=== PATIENT | male | born 1975 | race Two or more races ===

== ENCOUNTER → 2021-02-03 13:54 | Outpatient (BNVA) | payer OTHER, SELFPAY | PROVIDERS: PCP Nurse Practitioner Family; Visit Provider Physician Assistant | DX: S89.92XA Unspecified injury of left lower leg, initial encounter (principal); X58.XXXA Exposure to other specified factors, initial encounter | CPT/HCPCS: 73564; 99203 ==

== ENCOUNTER → 2021-02-05 09:43 | Outpatient (BNVA) | payer OTHER, SELFPAY | PROVIDERS: PCP Nurse Practitioner Family; Visit Provider Physician Assistant Medical | DX: S89.92XA Unspecified injury of left lower leg, initial encounter (principal); S76.192A Other specified injury of left quadriceps muscle, fascia and tendon, initial encounter; X50.3XXA Overexertion from repetitive movements, initial encounter; X50.1XXA Overexertion from prolonged static or awkward postures, initial encounter | CPT/HCPCS: 99213 ==

== ENCOUNTER → 2021-02-15 15:14 | Outpatient (BNVA) | payer OTHER, SELFPAY | PROVIDERS: PCP Nurse Practitioner Family; Visit Provider Physician Assistant | DX: S89.92XD Unspecified injury of left lower leg, subsequent encounter (principal); X58.XXXD Exposure to other specified factors, subsequent encounter | CPT/HCPCS: 99213 ==

== ENCOUNTER 2024-11-21 09:02 | Outpatient (AMB) | payer OTHER, SELFPAY ==
--- NOTE | 2024-11-21 09:16 | MHC.PC.OV ---
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 Accompanied by: Spouse Allergies No Known Allergies [No Known Allergies*] Allergy (Verified 11/21/24 10:01) Medication List - Last Reconciled 11/21/24 by JANNIE Seo No Known Home Meds Tobacco use date assessed: 11/21/24 Dental Screening Dental Screen Date: 11/21/24 Did you have a dental visit in the last 12 months?: Yes Did you have a dental problem in the last 6 months where you did not have access to dental care?: No Was dental information given to patient?: Patient has dentist HPI PE HPI Details History of Present Illness The patient is a 49-year-old male presenting with sinus issues and HTN. While previously having had a cystoscopy for prostate concerns, post-procedural effects include reduced urinary retention. He does not report any other concerning symptoms like chest pain, gastrointestinal issues, or mental health concerns. He has essential hypertension and currently records his blood pressure multiple times weekly. In sinus-related matters, he has frontal maxillary pressure, compounded by a deviated septum. His history of sleep apnea remains unexamined in recent years. He is scheduled for colorectal screening as part of his health maintenance. Health Maintenance - Blood pressure monitoring: To be conducted approximately three to four times a week. - Referral for colorectal screening. - Referral for sleep apnea testing. Social History Review of Systems - Respiratory: Denies chest pain, shortness of breath. - Gastrointestinal: Denies abdominal pain, constipation, diarrhea. - Psychiatric: Denies suicidal ideation, homicidal ideation. Physical Exam General: Cooperative, healthy appearing, comfortable, no acute distress and well developed, morbidly obese Orientation: Patient oriented x3 Limitations: No limitations Head: Normal to inspection Ears: Hearing grossly normal bilaterally Nose: Deviated septum present Face and sinus: Significant sinus issues with some frontal maxillary sinus pressure noted Eyes: Appearance normal, both eyes and all related structures Neck: Normal visual inspection and Yes full ROM Respiratory: Normal respiratory effort and able to speak in complete sentences. Clear to auscultation bilaterally Cardiovascular: Regular rate and rhythm. Normal S1 and S2 GI: Normal to inspection. Soft to palpation and nontender Skin: faint erythema to lower pannus Neuro: Patient oriented x3 Extremities: Normal to inspection Results - Tests: Scheduled sinus X-ray. Plan In managing this patient's essential hypertension, I prescribed losartan and recommended regular blood pressure monitoring. A sinus X-ray has been organized to clarify his sinus symptoms and assess the impact of the deviated septum. I planned a referral for colorectal cancer screening and testing for sleep apnea. Depending upon results, further evaluations on prostate-related urinary issues could be needed. Discussion Notes The diagnostic and management options, including hypertension management with losartan, was discussed with the patient, highlighting the medication's benefits as controlling blood pressure and reducing cardiovascular risks. The idea of regular blood pressure measurements was emphasized for effective management outcomes. I presented details of the sinus X-ray, emphasizing its importance in diagnosing sinus pressure causes. Regarding his sleep apnea history, explained the significance of further testing to mitigate associated risks. I discussed the importance of colorectal screening as part of preventive care, and the need to reevaluate urinary issues if they continue. Patient Instructions - Take losartan as prescribed for hypertension management, follow up - Monitor blood pressure three to four times per week. - Get a sinus X-ray as scheduled. - Follow up with recommended colorectal screening. - Attend recommended sleep apnea testing. - Report any new or worsening symptoms immediately. [facility] Surgical History No pertinent past surgical history Social History Housing: Apartment Patient Tobacco Use Status: Never used Tobacco e-Cigarette/Vaping Use: Never Used service: No Cognitive needs: No Hearing needs: No Vision needs: No Questionnaire PHQ-9 Over the last 2 weeks, how often have you been bothered by any of the following problems? 1. Little interest or pleasure in doing things: not at all 2. Feeling down, depressed, or hopeless: several days 3. Trouble falling or staying asleep, or sleeping too much: not at all 4. Feeling tired or having little energy: several days 5. Poor appetite or overeating: several days 6. Feeling bad about yourself - or that you are a failure or have let yourself or your family down: not at all 7. Trouble concentrating on things, such as reading the newspaper or watching television: several days 8. Moving or speaking so slowly that other people could have noticed. Or the opposite - being so fidgety or restless that you have been moving around a lot more than usual: not at all 9. Thoughts that you would be better off or of hurting yourself in some way: not at all Total score: 4 Depression Screening Interpretation: Negative Depression Screening Done: Yes 71155 - PHQ-9 Billing: Yes Source: Developed by Drs. Emre Powers, Lorena Oquendo, Viraj Venegas and colleagues, with an educational ricardo from [employer]. Thrive Questionnaire Date Thrive assessed: 11/21/24 I am a: Patient What is your living situation today?: I have a steady place to live Within the past 12 months, did the food you bought not last and you didn't have the money to get more?: Never true Within the past 12 months, did you worry whether your food would run out before you got money to buy more?: Never true Do you have trouble paying for medicines?: No Do you have trouble getting transportation to medical appointments?: No Do you have trouble paying your heating and electricity bill?: No Do you have trouble taking care of your child, family member or friend?: No Do you have trouble with day-to-day activities such as bathing, preparing meals, shopping, managing finances, etc.?: No Are you currently unemployed and looking for a job?: No Are you interested in more education?: No Please select the resources that you would like help with: None Currently or been in a relationship where the following occur: No concerns reported THRIVE Score: 0 AUDIT C Alcohol Use Questionnaire (AUDIT-C) 1. How often do you have a drink containing alcohol?: Monthly or less 2. How many drinks containing alcohol do you have on a typical day when you are drinking?: 3 or 4 3. How often do you have six or more drinks on one occasion?: Never Total Score: 2 Score Reviewed/Action Taken: Yes LINDEN-7 AMB Questionnaire LINDEN-7 Date LINDEN - 7 assessed: 11/21/24 Feeling nervous, anxious, or on edge: 1 = Several days Not being able to stop or control worryin = Not at all Worrying too much about different things: 0 = Not at all Trouble relaxin = Not at all Being so restless that it is hard to sit still: 0 = Not at all Becoming easily annoyed or irritable: 1 = Several days Feeling afraid as if something awful might happen: 0 = Not at all Total LINDEN-7 score (0-4 normal; 5-9 mild; 10-14 moderate; 15-21 severe): 2 Source: Developed by Drs. Emre Powers, Lorena Oquendo, Viraj Venegas and colleagues, with an educational ricardo from [employer]. LINDEN-7 Assessment Billing LINDEN-7 Assessment Tool: LINDEN-7 Assessment 63182 Physical exam (Primary Care) Vital Signs: Last Vital Signs Pulse 89 11/21/24 09:35 Resp 18 11/21/24 09:35 BP 148/102 H 11/21/24 09:35 Pulse Ox 96 11/21/24 09:35 Oxygen Delivery Method Room Air 11/21/24 09:35 BMI result Body Mass Index 39.8 Tobacco/Smoking Status: Tobacco use Status Tobacco use date assessed 11/21/24 11/21/24 09:20 Patient Tobacco Use Status Never used Tobacco 11/21/24 09:20 e-Cigarette/Vaping Use Never Used 11/21/24 09:20 PHQ-9: PHQ-9 Score PHQ-9: Total score 4 11/21/24 10:01 Depression Screening Interpretation: Negative Thrive Assessment: Date of Thrive Assessment Date Thrive assessed 11/21/24 11/21/24 09:20 Currently or been in a relationship where the following occur: No concerns reported Coding Level of Care Code Est Pt Prev Care 40-64y(15428) Diagnoses Encounter for routine adult physical exam with abnormal findings Z00.01 HTN (hypertension) I10 Screening for colon cancer Z12.11 Screening for prostate cancer Z12.5 Sleep apnea G47.30 Chronic sinusitis J32.9 Additional Codes LINDEN-7 Assessment Billing - LINDEN-7 Assessment Tool: LINDEN-7 Assessment 68012 ([id number]) PHQ-9 - 51293 - PHQ-9 Billing: Yes ([id number]) Assessment & Plan Assessment & Plan (1) Encounter for routine adult physical exam with abnormal findings: Code(s): Z00.01 - Encounter for general adult medical examination with abnormal findings Category: Medical (2) HTN (hypertension): Code(s): I10 - Essential (primary) hypertension Category: Medical Plan: . (3) Screening for colon cancer: Code(s): Z12.11 - Encounter for screening for malignant neoplasm of colon Category: Medical (4) Screening for prostate cancer: Code(s): Z12.5 - Encounter for screening for malignant neoplasm of prostate Category: Medical (5) Sleep apnea: Code(s): G47.30 - Sleep apnea, unspecified Category: Medical (6) Chronic sinusitis: Code(s): J32.9 - Chronic sinusitis, unspecified Category: Medical Plan . Orders: Orders Complete Blood Count Auto Diff Today Z00.01 - Encounter for general adult medical examination with abnormal findings Comprehensive [place]. Panel Fast Today Z00.01 - Encounter for general adult medical examination with abnormal findings TSH reflex Free T4 Today Z00.01 - Encounter for general adult medical examination with abnormal findings UA CC w/rflx Micro + Cult Today Z00.01 - Encounter for general adult medical examination with abnormal findings Lipid Panel Today Z00.01 - Encounter for general adult medical examination with abnormal findings Prostate Specific Antigen Scr Today Z12.5 - Encounter for screening for malignant neoplasm of prostate XR sinus min 3V Today J32.9 - Chronic sinusitis, unspecified Referrals Gastroenterology Referral Z12.11 - Encounter for screening for malignant neoplasm of colon Sleep Medicine Referral G47.30 - Sleep apnea, unspecified Medications: New losartan 25 mg PO DAILY 90 days 90 tabs 0RF
[2024-11-21 09:35] VITALS: BP 148/102; PULSE 89; RESP 18; O2SAT 96; BMI 39.8
== END 2024-11-21 10:26 | disposition home or self-care (01) ==
PROVIDERS: Visit Provider Nurse Practitioner Family
DX: Z00.01 Encounter for general adult medical examination with abnormal findings (principal); I10 Essential (primary) hypertension; Z12.11 Encounter for screening for malignant neoplasm of colon; Z12.5 Encounter for screening for malignant neoplasm of prostate; G47.30 Sleep apnea, unspecified; J32.9 Chronic sinusitis, unspecified

== ENCOUNTER → 2024-11-21 09:02 | Outpatient (BNVA) | payer OTHER, SELFPAY | PROVIDERS: Visit Provider Nurse Practitioner Family | DX: Z00.01 Encounter for general adult medical examination with abnormal findings (principal); I10 Essential (primary) hypertension; G47.30 Sleep apnea, unspecified; J32.9 Chronic sinusitis, unspecified | CPT/HCPCS: 96127 ==

== ENCOUNTER 2024-11-23 09:08 | Outpatient (REF) | payer OTHER, SELFPAY ==
--- NOTE | ~2024-11-23 | XR_ITS ---
EXAMINATION: XR PARANASAL SINUSES 3 VIEWS HISTORY: J32.9 - Chronic sinusitis, unspecified COMPARISON: There are no prior studies for comparison. FINDINGS: Four views of the paranasal sinuses are submitted. The bilateral frontal, maxillary, ethmoid, and sphenoid sinuses are well-aerated and clear. XR/XR sinus min 3V IMPRESSION: Unremarkable examination of the paranasal sinuses. Electronically signed by: Emre Gracia MD 11/25/2024 10:48 AM EDT
[2024-11-23 11:21] LABS: MANUAL DIFF FLAG NO
[2024-11-23 11:22] LABS: Appearance Urine Clear; Color Urine Yellow; Glucose Urine UA Negative (Negative); Leukocyte Esterase Urine Negative (Negative); Nitrite Urine Negative (Negative); PH 6.5 (5.0-9.0); UMIC TRIGGER UACC YES; Urine Blood Trace (Negative); Urine Ketones Negative (Negative); Urine Protein 30 (1+) mg/dL (Neg-Trace)
[2024-11-23 11:28] LABS: Basophils Percent Auto 0.5 % (0-2); Eosinophils Absolute Auto 0.1 X10*3/uL (0.0-0.4); Eosinophils Percent Auto 1.1 % (0-4); Hematocrit 48.2 % (42.0-52.0); Hemoglobin 16.7 g/dl (14.0-18.0); Imm Gran Abs Auto 0.02 X10*3/uL (0.00-0.03); Imm Gran Pct Auto 0.3 % (0.0-0.4); Lymphocytes Absolute Auto 1.8 X10*3/uL (1.2-4.9); Lymphocytes Percent Auto 27.9 % (20-40); Mean Corpuscular HGB Conc 34.6 g/dl (31.0-36.0); Mean Corpuscular Hemoglobin 28.9 pg (27.0-33.0); Mean Corpuscular Volume 83.5 fL (80.0-98.0); Mean Platelet Volume 9.8 fL (9.4-12.4); Monocytes Absolute Auto 0.6 X10*3/uL (0.1-1.2); Monocytes Percent Auto 9.1 % (2-11); Neutrophils Absolute Auto 3.9 x10*3/uL (2.0-8.3); Neutrophils Percent Auto 61.1 % (45-73); Platelet Count 171 X10*3/uL (160-400); Red Blood Count 5.77 X10*6/uL (4.60-5.80); Red Cell Distribution Width 14.2 % (11.0-16.0); White Blood Count 6.4 X10*3/uL (4.8-10.8)
[2024-11-23 11:29] LABS: Bacteria Urine None Seen (None Seen); Hyaline Casts Urine 0-2 /LPF (0-2); Squamous Epithelial Cell Urine 0-2 /HPF (0-2); WBC Urine 0-5 /HPF (0-5)
[2024-11-23 12:09] LABS: Prostate Specific Antigen Scr 0.95 ng/mL (<0.05-4.0)
[2024-11-23 12:10] LABS: Alanine Aminotransferase 53 U/L (0-40); Albumin Level 4.2 g/dL (3.5-5.0); Alkaline Phosphatase 78 U/L (39-117); Anion Gap 14 (12-20); Aspartate Amino Transferase 37 U/L (5-37); Bilirubin Total 0.5 mg/dL (0.0-1.0); Blood Urea Nitrogen 12 mg/dL (9-16); Carbon Dioxide 26 mmol/L (22-29); Chloride 107 mmol/L (96-108); Cholesterol 195 mg/dL (<200); Estimated Glomerular Filt Rate > 60; Glucose Fasting 99 mg/dL (60-99); HDL Cholesterol 40 mg/dL (>40); LDL Cholesterol Calculated 133 mg/dL (<100); Potassium 3.3 mmol/L (3.3-5.1); Sodium 144 mmol/L (135-145); TSH reflex Free T4 2.68 uIU/mL (0.32-4.0); Total Protein 7.5 g/dL (6.5-8.0); Triglycerides 110 mg/dL (<150)
== END 2024-11-23 09:09 | disposition home or self-care (01) ==
LOC: HO.HMGCX 09:08
PROVIDERS: PCP Nurse Practitioner Family; Visit Provider Nurse Practitioner Family
DX: J32.9 Chronic sinusitis, unspecified (principal); Z12.5 Encounter for screening for malignant neoplasm of prostate; Z13.6 Encounter for screening for cardiovascular disorders; Z00.01 Encounter for general adult medical examination with abnormal findings
CPT/HCPCS: 36415; 70220; 80053; 80061; 81001; 84153; 84443; 85025

== ENCOUNTER → 2024-11-23 09:12 | Outpatient (BNV) | payer OTHER, SELFPAY | PROVIDERS: PCP Nurse Practitioner Family; Visit Provider Radiology Diagnostic Radiology | DX: J32.9 Chronic sinusitis, unspecified (principal) | CPT/HCPCS: 70220 ==

== ENCOUNTER 2024-12-10 11:02 | Outpatient (AMB) | payer OTHER, SELFPAY ==
--- NOTE | 2024-12-10 11:07 | A.OFFVIS_ITS ---
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 handed male here for a sleep evaluation per PCP. He goes to bed at 10pm gets up at 5am, and per he also gasps for air, stops breathing multiple times, she has to nudge him and he starts breathing again, and most bothersome is the constant loud snoring. He wakes up constantly, spits his mouth guard out onto the floor as he clenches his jaws and grinds his teeth. He wakes up with morning with headaches daily turning into migraines and they can last for days with photophobia and phonophobia will need to monitor for monthly burden of migraines with a diary, he denies auras. His LFTs are elevated per last labs and BP is not well controlled on Losartan 25mg po daily. He denies RLS but he does toss and turn a lot at night. He has acid reflux and gets a bloated feeling with a metallic tastes in his mouth when he lays down. He does not smoke nicotine, vape, or do MJ edibles. He drinks alcohol occasionally during social events, past consumptions was 3 beers 2x a week. His BMI is elevated and would like a Weight management referral to improve caloric intake and strategies for meal prepping. [facility] Surgical History No pertinent past surgical history Social History Housing: Apartment Patient Tobacco Use Status: Never used Tobacco e-Cigarette/Vaping Use: Never Used service: No Cognitive needs: No Hearing needs: No Vision needs: No Review of Systems Const All systems reviewed & are unremarkable except as noted in HPI and below Physical Exam Vital Signs: Last Vital Signs Pulse 72 12/10/24 11:09 BP 142/110 H 12/10/24 11:09 Pulse Ox 97 12/10/24 11:09 Oxygen Delivery Method Room Air 12/10/24 11:09 BMI result Body Mass Index 32.6 Const Orientation/consciousness: patient oriented x3 HEENT Face and sinus: Yes normal facial exam and Yes face symmetric Throat: Yes other ([place] score of 4.) Eyes Pupils: Equal, round and reactive pupils present Neck Neck: Yes full ROM and Yes supple Resp Effort & Inspection: normal respiratory effort and able to speak in complete sentences Neuro General: patient oriented x3 and moves all extremities Cranial nerves: Yes CN's II-XII intact bilaterally, Yes Facial sensation intact/muscles of mastication intact, Yes Equal, round and reactive pupils present, Yes Normal accommodation reflex present, Yes Bilaterally intact EOM present, Yes Normal facial strength present, Yes Midline tongue present, Yes Ability to bilaterally rotate head present and Yes Ability to bilaterally elevate shoulders present Motor exam (neuro): 5/5 motor strength present throughout, no tremor noted and Normal motor muscle tone present throughout Deep tendon reflexes (DTR's): Right triceps reflex intensity grade: 2+, Left triceps reflex intensity grade: 2+, Rt Biceps (C5, C6): 2+, Left biceps reflex intensity grade: 2+, Right brachioradialis reflex intensity grade: 2+, Left brachioradialis reflex intensity grade: 2+, Right patellar reflex intensity grade: 2+ and Left patellar reflex intensity grade: 2+ Psych Thought process: Normal thought process present Thought content: Normal thought content present Results Reviewed Results Reviewed: FINDINGS: Four views of the paranasal sinuses are submitted. The bilateral frontal, maxillary, ethmoid, and sphenoid sinuses are well-aerated and clear. [employer]? Assessment & Plan Assessment & Plan (1) Mild acid reflux: Code(s): K21.9 - Gastro-esophageal reflux disease without esophagitis Category: Medical (2) Fatigue due to sleep pattern disturbance: Code(s): R53.83 - Other fatigue; G47.9 - Sleep disorder, unspecified Category: Medical (3) Migraines: Code(s): G43.909 - Migraine, unspecified, not intractable, without status migrainosus Category: Medical Qualifiers: Migraine type: unspecified Status migrainosus presence: without status migrainosus Intractability: intractable Qualified Code(s): G43.919 - Migraine, unspecified, intractable, without status migrainosus Plan HST Excessive Fatigue and snoring. Labs for deficiencies CBC for anemia, CMP, Vitamin D, B12, Homocysteine, MMA, Folate, Hga1c, TSH Acid Reflux Omeprazole 10mg PO daily. Migraine headaches start Ubrelvy 100mg PO PRN at the onset of a headache, may take one additional tablet if the migraine does not abort in 2 hours, for a total daily dose not to exceed 200mg PO daily. Contraindications: Sumatriptan and all triptans are contraindicated due to uncontrolled HTN, will start him on ubrelvy. Orders: Orders RT home sleep study Today G47.19 - Other hypersomnia Comprehensive Met. Panel Today G47.9 - Sleep disorder, unspecified, R53.83 - Other fatigue Vitamin D 25-OH Total Today G47.9 - Sleep disorder, unspecified, R53.83 - Other fatigue Vitamin B12 and Folate Today G47.9 - Sleep disorder, unspecified, R53.83 - Other fatigue Methylmalonic Acid Today G47.9 - Sleep disorder, unspecified, R53.83 - Other fatigue Hemoglobin A1c Today G47.9 - Sleep disorder, unspecified, R53.83 - Other fatigue Complete Blood Count no Diff Today G47.9 - Sleep disorder, unspecified, R53.83 - Other fatigue Ferritin Today G47.9 - Sleep disorder, unspecified, R53.83 - Other fatigue Homocysteine Today G47.9 - Sleep disorder, unspecified, R53.83 - Other fatigue TSH reflex Free T4 Today G47.9 - Sleep disorder, unspecified, R53.83 - Other fatigue Referrals Medical Weight Management Referral E66.01 - Morbid (severe) obesity due to excess calories Medications: New omeprazole Take one tablet as neeeded 30min prior to meal. 10 mg PO DAILY 30 caps 1RF GERD MDD 20mg daily K21.9 - Gastro-esophageal reflux disease without esophagitis ubrogepant (Ubrelvy) May take one 100mg PO tablet at the onse of migraines, if migraine does not abort in two hours you may take one additional tablet for a total dose of 200mg PO in a 24 hour period. 100 mg PO BID 30 days PRN 16 tabs 3RF Migraine acute onset MDD 200mg PO G43.909 - Migraine, unspecified, not intractable, without status migrainosus Patient Instructions: Sleep Hygiene provided: set a scheduled bedtime and wake time to help regulate the circadian rhythm and balance the release of pituitary hormones. Sleep in a dark room, temperatures below 68 degrees, and no devices n bed. Limit caffeinated products 6 hours prior to bed, and limit fluids 2-4 hours prior to bed. Gentle night yoga, diffusing essential oils, and playing soft music can be relaxing. The number 1 modifiable risk factor for sleep apnea is good control of HTN, f/u with PCP re: Losartan mangement as BP is 142/110 today. Headaches / Migraine take ubrelvy 100mg PO at the onset of migraine, may take one more tablet within 2 hours if the headache/migraine does not abort. Do not exceed 200mg PO daily. Bruxism, grinding of teeth will refer to sleep dentistry future consideration. Coding Level of Care Code New Pt Level 4 (29303) Complex EM visit Add On G2211 Diagnoses Mild acid reflux K21.9 Fatigue due to sleep pattern disturbance R53.83; G47.9 Intractable migraine without status migrainosus, unspecified migraine type G43.919 Migraine type: unspecified Status migrainosus presence: without status migrainosus Intractability: intractable Time Spent (min) 30 Comment Evalutation of Sleep apnea Sleep Questionnaire Difficulty falling asleep: No Difficulty staying asleep?: No Number of arousals: 1x Snoring: Yes Witnessed apneas: Yes Gasping arousals: Yes Nocturia: No GERD: Yes Vivid dreams: Yes Acting out dreams: No Abnormal behavior in sleep: Yes Abnormal movements in sleep: No Morning headaches: Yes Excessive daytime sleepiness: Yes Daytime naps: No Restless legs: No Hallucinations: No Sleep paralysis: No Drop attacks: No Sleep Study: Yes (>10 ) CPAP: No
[2024-12-10 11:09] VITALS: BP 142/110; PULSE 72; O2SAT 97; BMI 32.6
== END 2024-12-10 11:59 | disposition home or self-care (01) ==
LOC: HO.HSMS 11:03
PROVIDERS: PCP Nurse Practitioner Family; Visit Provider Physician Assistant Medical
DX: K21.9 Gastro-esophageal reflux disease without esophagitis (principal); R53.83 Other fatigue; G47.9 Sleep disorder, unspecified; G43.919 Migraine, unspecified, intractable, without status migrainosus
CPT/HCPCS: 99204

== ENCOUNTER 2024-12-17 12:47 | Outpatient (REF) | payer OTHER, SELFPAY ==
--- NOTE | ~2024-12-17 | US_ITS ---
CLINICAL HISTORY: R74.8 - Abnormal levels of other serum enzymes US abdomen complete Comparison: None Findings: The visualized pancreas is normal. The aorta and inferior vena cava are normal caliber. The liver is enlarged with increase of echogenicity. There is no intrahepatic bile duct dilatation. The common duct is 2.0 mm in diameter. The gallbladder is normal. There is no sonographic Pelayo sign. The right kidney is 11.7 cm in length. The left kidney is 13 cm in length. 7 mm stone of the midpole. The spleen is enlarged measuring 13.5 cm. No ascites. IMPRESSION: Increase of echogenicity of the liver favored to represent hepatic steatosis. Mild hepatomegaly. Left kidney stone. Splenomegaly. This document has been electronically signed by: Katalina Muhammad MD on 12/17/2024 21:22:44
[2024-12-17 16:15] LABS: Hematocrit 48.7 % (42.0-52.0); Mean Corpuscular HGB Conc 34.9 g/dl (31.0-36.0); Mean Platelet Volume 9.8 fL (9.4-12.4); Platelet Count 120 X10*3/uL (160-400); Red Blood Count 5.87 X10*6/uL (4.60-5.80); Red Cell Distribution Width 13.6 % (11.0-16.0); White Blood Count 3.3 X10*3/uL (4.8-10.8)
[2024-12-17 16:35] LABS: Estimated Average Glucose 128 mg/dL; Hemoglobin A1C 187.8087 umol/L; Hemoglobin A1c % 6.1 % (<6.0); Total Hemoglobin (HGBA1C) 4385.5903 umol/L
[2024-12-17 17:01] LABS: Alanine Aminotransferase 54 U/L (0-40); Albumin Level 4.2 g/dL (3.5-5.0); Anion Gap 12 (12-20); Aspartate Amino Transferase 52 U/L (5-37); Bilirubin Total 0.7 mg/dL (0.0-1.0); Blood Urea Nitrogen 11 mg/dL (9-16); Calcium 8.8 mg/dL (8.4-10.2); Carbon Dioxide 26 mmol/L (22-29); Chloride 107 mmol/L (96-108); Estimated Glomerular Filt Rate > 60; Glucose Random 99 mg/dL (60-115); Sodium 142 mmol/L (135-145); Total Protein 7.3 g/dL (6.5-8.0)
[2024-12-17 17:02] LABS: Folate 14.3 ng/mL (> or = 4.0); Vitamin B12 876 pg/mL (200-900)
[2024-12-17 17:18] LABS: Ferritin 556 ng/mL (20-250); TSH reflex Free T4 4.38 uIU/mL (0.32-4.0); Vitamin D 25-OH Total 19.8 ng/mL (>30)
[2024-12-17 18:20] LABS: Alkaline Phosphatase 69 U/L (39-117)
[2024-12-17 18:56] LABS: Free T4 (Free Thyroxine) 1.05 ng/dL (0.71-1.85)
[2024-12-20 05:48] LABS: Methylmalonic Acid 87 nmol/L (55-335)
== END 2024-12-17 12:48 | disposition home or self-care (01) ==
LOC: HO.HMGCX 12:47
PROVIDERS: PCP Nurse Practitioner Family; Referring Provider Physician Assistant Medical; Visit Provider Nurse Practitioner Family
DX: R74.8 Abnormal levels of other serum enzymes (principal); G47.9 Sleep disorder, unspecified; R53.83 Other fatigue; Z13.1 Encounter for screening for diabetes mellitus
CPT/HCPCS: 36415; 76700; 80053; 82306; 82607; 82728; 82746; 83036; 83921; 84439; 84443; 85027

== ENCOUNTER → 2024-12-17 12:52 | Outpatient (BNV) | payer OTHER, SELFPAY | PROVIDERS: PCP Nurse Practitioner Family; Referring Provider Physician Assistant Medical; Visit Provider Nuclear Medicine | DX: K76.0 Fatty (change of) liver, not elsewhere classified (principal); N20.0 Calculus of kidney | CPT/HCPCS: 76700 ==

== ENCOUNTER → 2025-01-02 07:02 | Outpatient (BNVA) | payer OTHER, SELFPAY | PROVIDERS: Visit Provider Nurse Practitioner Family | DX: Z13.89 Encounter for screening for other disorder (principal) ==

== ENCOUNTER 2025-01-15 08:09 | Outpatient (AMB) | payer OTHER, SELFPAY ==
--- NOTE | 2025-01-15 11:43 | MHC.OFFVISWM ---
VS Expanded 01/15/25 11:52 Height 5 ft 10 in Weight 267 lb 4 oz BMI 38.3 Body Fat % 32.5 Body Fat Mass 86.8 Fat Free Mass 180.4 Visceral Fat Rating 18 Body Water % 50.2 Body Water Mass 134 Basal Metabolic Rate/Score 2,477 Intake Visit Reasons: [employer] [facility] Allergies cyclobenzaprine Allergy (Mild, Verified 01/15/25 11:44) Rash Medication List - Last Reconciled 01/15/25 by Taiwo Cornejo MD cholecalciferol (vitamin D3) 50 mcg PO DAILY 90 days MDD 1 capsule losartan 25 mg PO DAILY 90 days omeprazole 10 mg PO DAILY MDD 20mg daily ubrogepant (Ubrelvy) 100 mg PO BID PRN 30 days MDD 200mg PO HPI HPI TV [employer] [facility]: Details: Start time: 11.40am, End time: 12.15pm ?I spent 30 minutes speaking with the patient on the phone plus an additional 5 minutes reviewing and updating records for a total of 35 minutes HPI Comments Details: Previous weight loss efforts: Herbalife Wakes up: 6am, Sleeps: 9.30pm Breakfast: skips Lunch: 12pm (turkey sandwich, grilled chicken, pork chops) Dinner: 5-6pm (rice, potatoes, grilled chicken, pasta) Snacks: 3-4pm (chips) Exercise: none Beverages: Green tea: (1 cup/d, plain), Coffee: rarely, soda: none, juice: rarely, ETOH: 6 beers per month PFSH Medical History (Updated 01/15/25 @ 12:05 by Taiwo Cornejo MD) GERD (gastroesophageal reflux disease) BMI 38.0-38.9,adult Obesity Fatty liver Splenomegaly Surgical History No pertinent past surgical history Social History (Updated 01/07/25 @ 15:03 by Betzaida Heard [facility]) Housing: Apartment Alcohol intake: former Patient Tobacco Use Status: Never used Tobacco e-Cigarette/Vaping Use: Never Used service: No Cognitive needs: No Hearing needs: No Vision needs: No Telehealth Telehealth Telehealth Platform: Telephone Location of provider rendering services: practice address Location of patient: address on file Patient Identification confirmed using: Name, : Yes Telehealth method: voice only Patient verbally consented to treatment: Yes Patient verbally consented to billing insurance company: Yes Patient informed of any privacy concerns related to visit: Yes Minutes spent on Phone/Video with Pt.: 35 Assessment & Plan Assessment & Plan (1) Obesity: Code(s): E66.9 - Obesity, unspecified Category: Medical Qualifiers: Obesity type: due to excess calories Obesity classification: adult class 2 (BMI 35 - 39.9) Serious obesity comorbidity presence: with serious comorbidity Body mass index: BMI 38.0-38.9 Qualified Code(s): E66.812 - Obesity, class 2; E66.01 - Morbid (severe) obesity due to excess calories; Z68.38 - Body mass index [BMI] 38.0-38.9, adult Plan: 1. We discussed in detail the available therapeutic options: 1) our lifestyle intervention program that has an average weight loss of 10% in 3 months which is about 26-30lbs for you.? 2) Weight loss medications. Your insurance will cover them after you participate first in our program for 3 months in our lifestyle program. 3) We also discussed about the lap sleeve gastrectomy. I emphasized the importance of close follow-up, adherence to instructions and good communication. The surgery does not replace the need to change your lifestlyle which is the cause of the obesity problem. The surgery provides the motivation to try again to change your lifestyle, it reduces the appetite and make the transition to a better lifestyle easier and doubles the amount of weight you would lose compared to doing the lifestyle change without the surgery. You will need to be on a liquid diet with protein shakes for 2 weeks before surgery to maximize weight loss and boost your nutritional status to recover better from surgery and also for the first two weeks after surgery to let the stomach heal before we introduce other foods. After the first 2 weeks we will introduce protein bars and soft foods like scrambled eggs, cottage cheese and yogurt and after the 6th week will introduce meat, fish and cooked vegetables in small amounts. Over time you should be able to eat everything in small amounts. Side effects like nausea, vomiting, heartburn or abdominal pain are not common in the practice unless you are not following in the practice. This operation requires lifetime commitment to following in our practice and communication with me. You will much less weight and experience side effects if you don?t communicate or not following in the practice. Complications are rare and in our practice is about 1/10 of the national average. In my opinion, this is the best strategy [facility] to achieve the best overall weight loss and also maintain it long-term.
[2025-01-15 11:52] VITALS: BMI 38.3
== END 2025-01-15 12:15 | disposition home or self-care (01) ==
LOC: HO.HBS 08:09
PROVIDERS: PCP Nurse Practitioner Family; Visit Provider Surgery
DX: E66.812 Obesity, class 2 (principal); Z68.38 Body mass index [BMI] 38.0-38.9, adult
CPT/HCPCS: 98009

== ENCOUNTER 2025-01-27 15:42 | Outpatient (REF) | payer OTHER, SELFPAY ==
--- NOTE | ~2025-01-27 | CT_ITS ---
CLINICAL HISTORY: R31.29 - Other microscopic hematuria CT abdomen and pelvis without/with contrast Comparison: None Findings: There are only 2 phases of images submitted. The initial noncontrasted study and a delayed excretory phase series. Significant abnormalities can go undetected without initial vascular phase images. Lung bases clear. No acute bony abnormalities. Hepatomegaly with fatty infiltration of the liver. No focal abnormalities in liver or spleen. Pancreas and adrenal glands unremarkable. Gallbladder is within normal limits. Small nonobstructing left renal stone. No other significant focal renal abnormality. No ureteral stone or hydronephrosis. Abdominal aorta is normal in caliber. No free fluid or adenopathy in the pelvis. No diverticulitis. Appendix unremarkable. Impression: Study is limited to noncontrasted and delayed contrasted images No vascular phase imaging is submitted, abnormalities can go undetected No definite significant abnormality identified This document has been electronically signed by: John Lozano MD on 01/28/2025 23:59:35
[2025-01-27] MEDS: iohexoL 350 MG/ML 75 ML INFUS..BTL 85 ML IV (16:48)
== END 2025-01-27 15:43 | disposition home or self-care (01) ==
LOC: HO.CT 15:42
PROVIDERS: PCP Nurse Practitioner Family; Visit Provider Nurse Practitioner Family
DX: R31.29 Other microscopic hematuria (principal)
CPT/HCPCS: 74178; Q9967

== ENCOUNTER → 2025-01-27 15:44 | Outpatient (BNV) | payer OTHER, SELFPAY | PROVIDERS: PCP Nurse Practitioner Family; Visit Provider Radiology Diagnostic Radiology | DX: R31.29 Other microscopic hematuria (principal) | CPT/HCPCS: 74178 ==

== ENCOUNTER → 2025-02-06 15:01 | Outpatient (REF) | payer OTHER, SELFPAY | LOC: HO.SL 15:01 | PROVIDERS: PCP Nurse Practitioner Family; Visit Provider Physician Assistant Medical | DX: G47.19 Other hypersomnia (principal) | CPT/HCPCS: 95806 ==

== ENCOUNTER → 2025-02-06 15:09 | Outpatient (BNV) | payer OTHER, SELFPAY | PROVIDERS: PCP Nurse Practitioner Family; Visit Provider Psychiatry & Neurology Neurology | DX: G47.19 Other hypersomnia (principal) | CPT/HCPCS: 95806 ==

== ENCOUNTER 2025-02-22 10:59 | Outpatient (REF) | payer OTHER, SELFPAY ==
[2025-02-22 13:42] LABS: MANUAL DIFF FLAG NO
[2025-02-22 13:43] LABS: Basophils Percent Auto 0.4 % (0-2); Eosinophils Absolute Auto 0.1 X10*3/uL (0.0-0.4); Eosinophils Percent Auto 1.1 % (0-4); Hematocrit 46.4 % (42.0-52.0); Hemoglobin 15.8 g/dl (14.0-18.0); Imm Gran Abs Auto 0.02 X10*3/uL (0.00-0.03); Imm Gran Pct Auto 0.4 % (0.0-0.4); Lymphocytes Absolute Auto 1.6 X10*3/uL (1.2-4.9); Lymphocytes Percent Auto 29.1 % (20-40); Mean Corpuscular HGB Conc 34.1 g/dl (31.0-36.0); Mean Corpuscular Volume 85.3 fL (80.0-98.0); Mean Platelet Volume 9.8 fL (9.4-12.4); Monocytes Absolute Auto 0.6 X10*3/uL (0.1-1.2); Monocytes Percent Auto 10.5 % (2-11); Neutrophils Absolute Auto 3.2 x10*3/uL (2.0-8.3); Neutrophils Percent Auto 58.5 % (45-73); Platelet Count 158 X10*3/uL (160-400); Red Blood Count 5.44 X10*6/uL (4.60-5.80); Red Cell Distribution Width 14.3 % (11.0-16.0); White Blood Count 5.4 X10*3/uL (4.8-10.8)
[2025-02-22 13:44] LABS: Urine Cytology See Pathology rpt
[2025-02-22 13:46] LABS: Appearance Urine Clear; Color Urine Yellow; Glucose Urine UA Negative (Negative); Leukocyte Esterase Urine Small (1+) (Negative); Nitrite Urine Negative (Negative); PH 6.5 (5.0-9.0); Specific Gravity - Urine 1.015 (1.005-1.025); UMIC TRIGGER UACC YES; Urine Blood Trace (Negative); Urine Ketones Negative (Negative); Urine Protein Trace mg/dL (Neg-Trace)
[2025-02-22 13:51] LABS: Bacteria Urine None Seen (None Seen); Hyaline Casts Urine 0-2 /LPF (0-2); RBC Urine 0-2 /HPF (0-2); Squamous Epithelial Cell Urine 0-2 /HPF (0-2); UACC Culture Trigger YES
[2025-02-22 14:00] LABS: Alanine Aminotransferase 43 U/L (0-40); Albumin Level 4.3 g/dL (3.5-5.0); Alkaline Phosphatase 73 U/L (39-117); Anion Gap 11 (12-20); Aspartate Amino Transferase 33 U/L (5-37); Bilirubin Total 0.8 mg/dL (0.0-1.0); Blood Urea Nitrogen 13 mg/dL (9-16); Calcium 8.8 mg/dL (8.4-10.2); Carbon Dioxide 27 mmol/L (22-29); Chloride 107 mmol/L (96-108); Estimated Glomerular Filt Rate > 60; Glucose Random 87 mg/dL (60-115); Potassium 3.2 mmol/L (3.3-5.1); Sodium 142 mmol/L (135-145)
[2025-02-24 04:48] LABS: HBS Num1 2.52 mIU/mL (0-7.99); HBc Num1 0.07 S/CO (0.00-0.79); HBsAGNum1 0.36 S/CO (0.00-0.99); Hepatitis B Core Antibody Nonreactive (Nonreactive); Hepatitis B Surface Antigen Negative (Negative); ~HepC Num1 0.12 S/CO (0.00-0.79); ~Hepatitis A Antibody IgM Nonreactive (Nonreactive); ~Hepatitis B Surface Antibody NONREACTIVE (Nonreactive); ~Hepatitis C Antibody Nonreactive (Nonreactive)
== END 2025-02-22 11:00 | disposition home or self-care (01) ==
LOC: HO.HMGCLDS 10:59
PROVIDERS: PCP Nurse Practitioner Family; Visit Provider Nurse Practitioner Family
DX: R31.29 Other microscopic hematuria (principal); E87.6 Hypokalemia
CPT/HCPCS: 36415; 80053; 81001; 85025; 86704; 86706; 86709; 86803; 87086; 87340; 88112

== ENCOUNTER → 2025-02-25 08:23 | Outpatient (BNVA) | payer OTHER, SELFPAY | PROVIDERS: PCP Nurse Practitioner Family; Visit Provider Nurse Practitioner Family ==

== ENCOUNTER → 2025-03-20 08:01 | Outpatient (BNVA) | payer OTHER, SELFPAY | PROVIDERS: PCP Nurse Practitioner Family | DX: Z01.30 Encounter for examination of blood pressure without abnormal findings (principal) | CPT/HCPCS: 99211 ==

== ENCOUNTER 2025-03-25 13:53 | Outpatient (REF) | payer OTHER, SELFPAY ==
[2025-03-25 14:48] LABS: Appearance Urine Turbid; Glucose Urine UA Negative (Negative); PH 7.0 (5.0-9.0); Specific Gravity - Urine 1.020 (1.005-1.025); UMIC TRIGGER UACC YES
[2025-03-25 14:59] LABS: Other Crystals Urine Present
[2025-03-25 15:18] LABS: Alanine Aminotransferase 45 U/L (0-40); Albumin Level 4.3 g/dL (3.5-5.0); Alkaline Phosphatase 70 U/L (39-117); Anion Gap 11 (12-20); Aspartate Amino Transferase 31 U/L (5-37); Blood Urea Nitrogen 14 mg/dL (9-16); Calcium 9.2 mg/dL (8.4-10.2); Carbon Dioxide 29 mmol/L (22-29); Chloride 108 mmol/L (96-108); Estimated Glomerular Filt Rate > 60; Potassium 3.4 mmol/L (3.3-5.1); Sodium 145 mmol/L (135-145); Total Protein 6.9 g/dL (6.5-8.0)
[2025-03-26 04:23] LABS: HBS Num1 2.35 mIU/mL (0-7.99); HBc Num1 0.10 S/CO (0.00-0.79); HBsAGNum1 0.43 S/CO (0.00-0.99); Hepatitis A Antibody IgM 0.16 Index (0-0.79); Hepatitis B Surface Antigen Negative (Negative); ~HepC Num1 0.11 S/CO (0.00-0.79); ~Hepatitis A Antibody IgM Nonreactive (Nonreactive); ~Hepatitis B Surface Antibody NONREACTIVE (Nonreactive); ~Hepatitis C Antibody Nonreactive (Nonreactive)
== END 2025-03-25 13:54 | disposition home or self-care (01) ==
LOC: HO.LAB 13:53
PROVIDERS: PCP Nurse Practitioner Family; Visit Provider Nurse Practitioner Family
DX: Z00.01 Encounter for general adult medical examination with abnormal findings (principal); Z11.59 Encounter for screening for other viral diseases; I10 Essential (primary) hypertension; R74.8 Abnormal levels of other serum enzymes; R31.29 Other microscopic hematuria
CPT/HCPCS: 36415; 80053; 81001; 86704; 86706; 86709; 86803; 87086; 87340

== ENCOUNTER 2025-04-08 13:52 | Outpatient (AMB) | payer OTHER, SELFPAY ==
--- NOTE | 2025-04-08 14:01 | A.OFFVIS_ITS ---
Vital Signs 04/08/25 14:02 Height 5 ft 10 in Weight 272 lb 2 oz BMI 39.0 BP 132/82 Blood Pressure Location Rt brachial Position Sitting Pulse 91 Pulse Source Pulse Oximeter Pulse Oximetry (%) 95 Oxygen Delivery Method Room Air Intake Visit Reasons: 3mon follow-up Intake Note: Patient presents follow up Sleep/Migraine medication. Labs/HST in chart(AHI-49, XAVIER, 76%. APAP 5-20cm) PSG booked for 04/13(cx due to denied by insurance. will trial CPAP then with resubmit for PSG); WM seen 01/15. Patient has periodic headaches. last one was about 3 weeks ago(states feels one coming on now.)has not taken ubrelvy yet. Looking for medication. Accompanied by: Spouse Allergies cyclobenzaprine Allergy (Mild, Verified 04/08/25 14:05) Rash HPI Comments Details: 49 year old r. handed male here for a sleep evaluation per PCP. HST AHI 49/ hr Xavier 76% Apap [id number], will send for titration study once compliant He goes to bed at 10pm gets up at 5am, and per he also gasps for air, stops breathing multiple times, she has to nudge him and he starts breathing again, and most bothersome is the constant loud snoring. He wakes up constantly, spits his mouth guard out onto the floor as he clenches his jaws and grinds his teeth. He wakes up with morning with headaches daily turning into migraines lasting for hours to days, radiating temporal to ethmoid sinsu bilaterally, with photophobia and phonophobia, denies dizziness, vertigo, n/v and auras. will need to monitor for monthly burden. His BP is better managed now on Losartan 25mg po daily, and added amlodipine 5mg po daily. He denies RLS but he does toss and turn a lot at night. He has acid reflux and gets a bloated feeling with a metallic tastes in his mouth when he lays down, will take omeprazole. January 2025 he was seen by weight management, diet and excercise with lifestyle changes along nutrition and portion control reviewed. Zepbound option reviewed and Gastric bypass reviewed with patient and he is motivated to lose weight. COUNT INCLUDES THE [facility] Medical History GERD (gastroesophageal reflux disease) BMI 38.0-38.9,adult Obesity Fatty liver Splenomegaly Surgical History No pertinent past surgical history Social History Housing: Apartment Alcohol intake: former Patient Tobacco Use Status: Never used Tobacco e-Cigarette/Vaping Use: Never Used service: No Cognitive needs: No Hearing needs: No Vision needs: No Physical Exam Vital Signs: Last Vital Signs Pulse 91 04/08/25 14:02 BP 132/82 04/08/25 14:02 Pulse Ox 95 04/08/25 14:02 Oxygen Delivery Method Room Air 04/08/25 14:02 BMI result Body Mass Index 39.0 Const Orientation/consciousness: patient oriented x3 HEENT Face and sinus: Yes normal facial exam and Yes face symmetric Throat: Yes other ([place] score of 4.) Eyes Pupils: Equal, round and reactive pupils present Neck Neck: Yes full ROM and Yes supple Resp Effort & Inspection: normal respiratory effort and able to speak in complete sentences Neuro General: patient oriented x3 and moves all extremities Cranial nerves: Yes Facial sensation intact/muscles of mastication intact, Yes Equal, round and reactive pupils present, Yes Normal accommodation reflex present, Yes Bilaterally intact EOM present, Yes Normal facial strength present, Yes Midline tongue present, Yes Ability to bilaterally rotate head present and Yes Ability to bilaterally elevate shoulders present Motor exam (neuro): 5/5 motor strength present throughout, no tremor noted and Normal motor muscle tone present throughout Psych Appearance: grossly normal Mental Status: mental status grossly normal Thought process: Normal thought process present Thought content: Normal thought content present Results Reviewed Results Reviewed: HST AHI is 49/hour and O2 Nadirs to 72%, start APap at [id number] and will send for titration once established on therapy. Assessment & Plan Assessment & Plan (1) MO (obstructive sleep apnea): Comment: start cpap 5-20cm H20 will titrate once compliant Code(s): G47.33 - Obstructive sleep apnea (adult) (pediatric) Category: Medical (2) Fatigue due to sleep pattern disturbance: Code(s): R53.83 - Other fatigue; G47.9 - Sleep disorder, unspecified Category: Medical (3) Mild acid reflux: Comment: omeprazole Code(s): K21.9 - Gastro-esophageal reflux disease without esophagitis Category: Medical (4) Migraines: Comment: ubrelvy sent to pharmacy 16 tablets x 3 months. Code(s): G43.909 - Migraine, unspecified, not intractable, without status migrainosus Category: Medical Qualifiers: Migraine type: unspecified Status migrainosus presence: without status migrainosus Intractability: intractable Qualified Code(s): G43.919 - Migraine, unspecified, intractable, without status migrainosus Plan MO start cpap therapy and >4 hours daily at night, wash mask, hoses, change filters and fill reservoir with distilled water. Labs for deficiencies CBC for anemia, CMP, Vitamin D, B12, Homocysteine, MMA, Folate, Hga1c, TSH, reviewed with pt. Acid Reflux Omeprazole 10mg PO daily. Migraine headaches start Ubrelvy 100mg PO PRN at the onset of a headache, may take one additional tablet if the migraine does not abort in 2 hours, for a total daily dose not to exceed 200mg PO daily. Weight mangement for nutrition counseling, telehealth counseling, zepbound, nutrition and portion control, gastric bypass. Contraindications: Sumatriptan and all triptans are contraindicated due to uncontrolled HTN, will start him on ubrelvy. Medications: Changed From ubrogepant (Ubrelvy) May take one 100mg PO tablet at the onse of migraines, if migraine does not abort in two hours you may take one additional tablet for a total dose of 200mg PO in a 24 hour period. 100 mg PO BID PRN 16 tabs 3RF Migraine acute onset 30 days MDD 200mg PO G43.909 - Migraine, unspecified, not intractable, without status migrainosus To ubrogepant (Ubrelvy) May take one 100mg PO tablet at the onse of migraines, if migraine does not abort in two hours you may take one additional tablet for a total dose of 200mg PO in a 24 hour period. 100 mg PO ONCE PRN 16 tabs 3RF Migraine acute onset 90 days MDD 200mg G43.909 - Migraine, unspecified, not intractable, without status migrainosus Refilled ubrogepant (Ubrelvy) May take one 100mg PO tablet at the onse of migraines, if migraine does not abort in two hours you may take one additional tablet for a total dose of 200mg PO in a 24 hour period. 100 mg PO BID PRN 16 tabs 3RF Migraine acute onset 30 days MDD 200mg PO G43.909 - Migraine, unspecified, not intractable, without status migrainosus cholecalciferol (vitamin D3) Take one capsule at bedtime daily. 50 mcg PO DAILY 90 caps 3RF low vitamin D 90 days MDD 1 capsule R79.89 - Other specified abnormal findings of blood chemistry Patient Instructions: Sleep Hygiene provided: set a scheduled bedtime and wake time to help regulate the circadian rhythm and balance the release of pituitary hormones. Sleep in a dark room, temperatures below 68 degrees, and no devices n bed. Limit caffeinated products 6 hours prior to bed, and limit fluids 2-4 hours prior to bed. Gentle night yoga, diffusing essential oils, and playing soft music can be relaxing. Coding Level of Care Code Est Pt Level 4 (71108) Complex EM visit Add On G2211 Diagnoses MO (obstructive sleep apnea) G47.33 Fatigue due to sleep pattern disturbance R53.83; G47.9 Mild acid reflux K21.9 Intractable migraine without status migrainosus, unspecified migraine type G43.919 Migraine type: unspecified Status migrainosus presence: without status migrainosus Intractability: intractable Time Spent (min) 30 Comment start cpap and monitor for compliance
[2025-04-08 14:02] VITALS: BP 132/82; PULSE 91; O2SAT 95; BMI 39.0
== END 2025-04-08 14:41 | disposition home or self-care (01) ==
LOC: HO.HSMS 13:53
PROVIDERS: PCP Nurse Practitioner Family; Visit Provider Physician Assistant Medical
DX: G47.33 Obstructive sleep apnea (adult) (pediatric) (principal); R53.83 Other fatigue; G47.9 Sleep disorder, unspecified; K21.9 Gastro-esophageal reflux disease without esophagitis; G43.919 Migraine, unspecified, intractable, without status migrainosus
CPT/HCPCS: 99214

== ENCOUNTER 2025-04-22 15:25 | Outpatient (AMB) | payer OTHER, SELFPAY ==
--- NOTE | 2025-04-22 15:28 | A.OFFVIS_ITS ---
Vital Signs 04/22/25 15:29 Height 5 ft 10 in Weight 268 lb 15.423 oz BMI 38.6 BP 132/90 H Blood Pressure Location Lt brachial Position Sitting Pulse 85 Intake Visit Reasons: Colonoscopy Screening Intake Note: Adam presents in the office as a colonoscopy screening. CC: states that he is just due for a colonoscopy. Allergies cyclobenzaprine Allergy (Mild, Verified 04/08/25 14:05) Rash HPI HPI Colonoscopy Screening: Details: 49-year-old male here for preprocedural meeting to discuss a screening colonoscopy. He is referred by Greg Kumar. PMX MO Obesity Hypertension Fatty liver Migraines GERD * SURGICAL HISTORY Pt denies * ALLERGIES Cyclobenzaprine * Shopliment LABS: Laboratory Tests 11/23/24 12/17/24 02/22/25 09:28 12:53 11:30 WBC 5.4 Hgb 15.8 Hct 46.4 Plt Count 171 120 L D 158 L D Estimated GFR Total Bilirubin AST ALT Alkaline Phosphatase 03/25/25 14:01 WBC Hgb Hct Plt Count Estimated GFR > 60 Total Bilirubin 0.4 AST 31 ALT 45 H Alkaline Phosphatase 70 TODAY'S VISIT This is his first colonoscopy. He denies any bowel or upper GI problems. He is naive to anes and sedation. He denies any cardiac or respiratory problems. He has recently diagnose sleep apnea and shortly will be started on CPAP. No ID problems THere is no known FHX of crc or polyps. [facility] Medical History (Updated 04/22/25 @ 15:53 by POLINA Self) Obesity Hypokalemia Sprain Sleep apnea Screening for prostate cancer Screening for colon cancer Mild acid reflux Encounter for routine adult physical exam with abnormal findings GERD (gastroesophageal reflux disease) BMI 38.0-38.9,adult Fatty liver Splenomegaly Surgical History No pertinent past surgical history Social History Housing: Apartment Alcohol intake: former Patient Tobacco Use Status: Never used Tobacco e-Cigarette/Vaping Use: Never Used service: No Cognitive needs: No Hearing needs: No Vision needs: No Review of Systems Const Denies fatigue, Denies fever(s), Denies night sweats, Denies poor appetite and Denies weight loss ENT Reports Normal hearing present, Denies dental pain, Denies dysphagia, Denies hearing loss, Denies mouth pain, Denies odynophagia, Denies throat swelling, Denies tongue swelling and Reports other (Dentition adequate) Card Reports no additional complaints Resp Reports no additional complaints GI Details: Denies abdominal pain, Denies melena, Denies bloating, Denies hematochezia, Denies constipation, Denies GI cramping, Denies dysphagia, Denies excessive flatus, Denies early satiety, Reports heartburn, Denies diarrhea, Denies nausea, Denies odynophagia, Denies vomiting and Denies hematemesis Skin/Breast Denies pruritus, Denies lesions, Denies rash and Denies jaundice Neuro Reports Normal hearing present and Denies Abnormal speech present Endo Denies fatigue Aller/Immun Denies throat swelling and Denies tongue swelling Physical Exam Vital Signs: Last Vital Signs Pulse 85 04/22/25 15:29 BP 132/90 H 04/22/25 15:29 BMI result Body Mass Index 38.6 Const General: cooperative, no acute distress, well developed and well groomed Nutritional Appearance: well nourished and obese centrally obese Orientation/consciousness: oriented to person, oriented to place and oriented to time Limitations: No language barrier HEENT Head: Yes normocephalic and Yes atraumatic Eyes General: appearance normal, both eyes and all related structures Pupils: Equal, round and reactive pupils present Neck Neck: Yes normal visual inspection and Yes no lymphadenopathy Thyroid: Thyroid normal Resp Effort & Inspection: normal respiratory effort and able to speak in complete sentences Auscultation: clear to auscultation bilaterally Cardio Rate: regular rate Rhythm: regular rhythm Heart sounds: Normal, physiologic split S2 sound present Peripheral pulses: radial pulses present and posterior tibial pulses present GI Inspection: No distended, Yes Abdominal panniculus present and Yes obesity Palpation (GI): Soft to palpation, nontender, no guarding, not rigid and No hepatosplenomegaly present Percussion: Yes normal to percussion Auscultation: normal bowel sounds Rectal Exam - Male: Yes deferred Skin General skin exam: no rashes or lesions noted, turgor normal, skin not dry, no jaundice, No spider nevi and no striae Rashes: no rashes Nails: normal Neuro General: oriented to person, oriented to place and oriented to time Cranial nerves: Yes Equal, round and reactive pupils present and Yes Normal hearing present Speech: No Abnormal speech present Extrem General: Yes normal to inspection, No clubbing, No cyanosis and Yes edema (Mild pitting on the lotions and ankles only) Psych Appearance: grossly normal and well kempt Mental Status: mental status grossly normal Speech and movement: Normal speech and movement present Affect: normal affect Attitude: cooperative Thought process: Normal thought process present and not confabulating Thought content: Normal thought content present Insight: Good insight present (Psych) Judgement: Good judgement present (Psych) Assessment & Plan Assessment & Plan (1) Pre-op examination: Code(s): Z01.818 - Encounter for other preprocedural examination Category: Medical (2) BMI 38.0-38.9,adult: Code(s): Z68.38 - Body mass index [BMI] 38.0-38.9, adult Category: Medical (3) MO (obstructive sleep apnea): Comment: start cpap 5-20cm H20 will titrate once compliant Code(s): G47.33 - Obstructive sleep apnea (adult) (pediatric) Category: Medical Plan This is his first colonoscopy. He denies any bowel or upper GI problems. He is naive to anes and sedation. He denies any cardiac or respiratory problems. He has recently diagnose sleep apnea and shortly will be started on CPAP. No ID problems THere is no known FHX of crc or polyps. Orders: Orders Colonoscopy - GI Use Only Today Z01.818 - Encounter for other preprocedural examination Medications: New bisacodyl (Dulcolax (bisacodyl)) 10 mg (2 x 5 mg) PO BEDTIME 4 tabs 0RF 2 days peg 3350-electrolytes 236-22.74-6.74 -5.86 gram (Golytely) until fecal effluent is clear; do not exceed a total volume of 2,000 mL 240 mL PO Q10M 4,000 mL 0RF 1 day Z12.11 - Encounter for screening for malignant neoplasm of colon Coding Level of Care Code New Pt Level 3 (10425) Diagnoses Pre-op examination Z01.818 BMI 38.0-38.9,adult Z68.38 MO (obstructive sleep apnea) G47.33
[2025-04-22 15:29] VITALS: BP 132/90; PULSE 85; BMI 38.6
== END 2025-04-22 16:05 | disposition home or self-care (01) ==
LOC: HO.HGI 15:26
PROVIDERS: PCP Nurse Practitioner Family; Visit Provider Nurse Practitioner
DX: Z01.818 Encounter for other preprocedural examination (principal); Z12.11 Encounter for screening for malignant neoplasm of colon; E66.9 Obesity, unspecified; Z68.38 Body mass index [BMI] 38.0-38.9, adult; G47.33 Obstructive sleep apnea (adult) (pediatric)
CPT/HCPCS: S0285

== ENCOUNTER 2025-07-09 15:22 | Outpatient (AMB) | payer OTHER, SELFPAY ==
--- NOTE | 2025-07-09 15:30 | MHC.OFFVIS ---
Vital Signs 07/09/25 15:31 Height 5 ft 10 in Weight 277 lb 4 oz BMI 39.8 BP 128/88 Blood Pressure Location Lt brachial Position Sitting Pulse 77 Pulse Source Pulse Oximeter Pulse Oximetry (%) 96 Oxygen Delivery Method Room Air Intake Visit Reasons: 3mnth Intake Note: Patient presents follow up MO/Migraine. Compliance in chart(62/70days, >=4hrs-83%, Average Usage-6hr 6min, Med Pressure-10.6, Med Leaks-19.3, AHI-15.5). Patient states he has had a migraine in about 3m. Accompanied by: Spouse Allergies cyclobenzaprine Allergy (Mild, Verified 07/09/25 15:36) Rash HPI Comments Details: 50 year old r. handed male is here for a sleep evaluation per PCP. HST AHI 49/ hr Adam 76% Apap [id number], will send for titration study once compliant MO compliance report reviewed with pt today March 2025 to Jun 2025 Total avg days is 62/70 and >4 hours is 83% with 6hour and 6min Press 10.6cmH20 leaks 19.3cmH20 AHI 15.5 He washes his mask, rinses his hoses, changes filters and fills reservoir with water. Pending titration He goes to bed at 10pm gets up at 5am, and per he also gasps for air, stops breathing multiple times, she has to nudge him and he starts breathing again, and most bothersome is the constant loud snoring. He wakes up constantly, drooling out of the corners of mouth. Sometimes he will spit his mouth guard out onto the floor as he clenches his jaws and grinds his teeth.He wakes up with morning with headaches daily which turn into migraines lasting for hours to days, radiating temporal around to the ethmoid sinsuses bilaterally with photophobia and phonophobia. He denies dizziness, vertigo, n/v and auras. will need to monitor for monthly burden. His BP is better managed now on Losartan 25mg po daily, and added amlodipine 5mg po daily. He denies RLS and turns a lot at night, He has acid reflux and gets a bloated feeling with a metallic tastes in his mouth when he lays down, and takes omeprazole. January 2025 he was seen by weight management, diet and excercise with lifestyle changes along nutrition and portion control reviewed. Zepbound option reviewed and Gastric bypass reviewed with patient and he is motivated to lose weight. He never started Ubrelvy and says he has refreshing sleep when using his cpap now. [facility] Medical History Obesity Hypokalemia Sprain Sleep apnea Screening for prostate cancer Screening for colon cancer Mild acid reflux Encounter for routine adult physical exam with abnormal findings GERD (gastroesophageal reflux disease) BMI 38.0-38.9,adult Fatty liver Splenomegaly Surgical History No pertinent past surgical history Social History Housing: Apartment Alcohol intake: former Patient Tobacco Use Status: Never used Tobacco e-Cigarette/Vaping Use: Never Used service: No Cognitive needs: No Hearing needs: No Vision needs: No Physical Exam Vital Signs: Last Vital Signs Pulse 77 07/09/25 15:31 BP 128/88 07/09/25 15:31 Pulse Ox 96 07/09/25 15:31 Oxygen Delivery Method Room Air 07/09/25 15:31 BMI result Body Mass Index 39.8 Const Orientation/consciousness: patient oriented x3 HEENT General nose exam: Foreign body present in naris Face and sinus: Yes normal facial exam and Yes face symmetric Throat: Yes other ([place] score of 4.) Eyes Pupils: Equal, round and reactive pupils present Neck Neck: Yes full ROM and Yes supple Resp Effort & Inspection: normal respiratory effort and able to speak in complete sentences Neuro General: patient oriented x3 and moves all extremities Cranial nerves: Yes Facial sensation intact/muscles of mastication intact, Yes Equal, round and reactive pupils present, Yes Normal accommodation reflex present, Yes Bilaterally intact EOM present, Yes Normal facial strength present, Yes Midline tongue present, Yes Ability to bilaterally rotate head present and Yes Ability to bilaterally elevate shoulders present Cognition (Neuro): normal cognition Gait exam (Neuro): Normal gait present Motor exam (neuro): 5/5 motor strength present throughout, no tremor noted and Normal motor muscle tone present throughout Psych Appearance: grossly normal Mental Status: mental status grossly normal Thought process: Normal thought process present Thought content: Normal thought content present Assessment & Plan Assessment & Plan (1) MO (obstructive sleep apnea): Comment: start cpap 5-20cm H20 will titrate once compliant Code(s): G47.33 - Obstructive sleep apnea (adult) (pediatric) Category: Medical (2) Nocturnal hypoxemia: Code(s): G47.34 - Idiopathic sleep related nonobstructive alveolar hypoventilation Category: Medical (3) Fatigue due to sleep pattern disturbance: Code(s): R53.83 - Other fatigue; G47.9 - Sleep disorder, unspecified Category: Medical (4) Mild acid reflux: Comment: omeprazole Code(s): K21.9 - Gastro-esophageal reflux disease without esophagitis Category: Medical (5) Migraines: Comment: ubrelvy sent to pharmacy 16 tablets x 3 months. Code(s): G43.909 - Migraine, unspecified, not intractable, without status migrainosus Category: Medical Qualifiers: Migraine type: unspecified Status migrainosus presence: without status migrainosus Intractability: intractable Qualified Code(s): G43.919 - Migraine, unspecified, intractable, without status migrainosus Plan MO start cpap therapy and >4 hours daily as pt experiences refreshing sleep. Labs for deficiencies CBC for anemia, CMP, Vitamin D, B12, Homocysteine, MMA, Folate, Hga1c, TSH, reviewed with pt. Acid Reflux Omeprazole 10mg PO daily. Migraine headaches start Ubrelvy 100mg PO PRN at the onset of a headache, may take one additional tablet if the migraine does not abort in 2 hours, for a total daily dose not to exceed 200mg PO daily. Weight management for nutrition counseling, telehealth counseling, zepbound, nutrition and portion control, gastric bypass. Contraindications: Sumatriptan and all triptans are contraindicated due to uncontrolled HTN, will start him on ubrelvy. Orders: Orders RT PSG in-lab sleep titration 07/09/25 G47.33 - Obstructive sleep apnea (adult) (pediatric), G47.34 - Idiopathic sleep related nonobstructive alveolar hypoventilation Patient Instructions: Sleep Hygiene provided: set a scheduled bedtime and wake time to help regulate the circadian rhythm and balance the release of pituitary hormones. Sleep in a dark room, temperatures below 68 degrees, and no devices n bed. Limit caffeinated products 6 hours prior to bed, and limit fluids 2-4 hours prior to bed. Gentle night yoga, diffusing essential oils, and playing soft music can be relaxing. Coding Level of Care Code Est Pt Level 4 (22917) Diagnoses MO (obstructive sleep apnea) G47.33 Nocturnal hypoxemia G47.34 Fatigue due to sleep pattern disturbance R53.83; G47.9 Mild acid reflux K21.9 Intractable migraine without status migrainosus, unspecified migraine type G43.919 Migraine type: unspecified Status migrainosus presence: without status migrainosus Intractability: intractable
[2025-07-09 15:31] VITALS: BP 128/88; PULSE 77; O2SAT 96; BMI 39.8
== END 2025-07-09 16:00 | disposition home or self-care (01) ==
LOC: HO.HSMC 15:23
PROVIDERS: PCP Nurse Practitioner Family; Visit Provider Physician Assistant Medical
DX: G47.33 Obstructive sleep apnea (adult) (pediatric) (principal); G47.34 Idiopathic sleep related nonobstructive alveolar hypoventilation; R53.83 Other fatigue; G47.9 Sleep disorder, unspecified; K21.9 Gastro-esophageal reflux disease without esophagitis; G43.919 Migraine, unspecified, intractable, without status migrainosus
CPT/HCPCS: 99214

== ENCOUNTER → 2025-08-06 09:34 | Outpatient (REF) | payer OTHER, SELFPAY | LOC: HO.SL 09:34 | PROVIDERS: PCP Nurse Practitioner Family; Visit Provider Physician Assistant Medical | DX: G47.34 Idiopathic sleep related nonobstructive alveolar hypoventilation (principal); G47.33 Obstructive sleep apnea (adult) (pediatric); R53.83 Other fatigue | CPT/HCPCS: 36415; 83090 ==

== ENCOUNTER → 2025-08-06 21:18 | Outpatient (BNV) | payer OTHER, SELFPAY | PROVIDERS: PCP Nurse Practitioner Family; Visit Provider Psychiatry & Neurology Neurology | DX: G47.33 Obstructive sleep apnea (adult) (pediatric) (principal) | CPT/HCPCS: 95811 ==